=== PATIENT | female | born 1960 | race Caucasian/White ===

== ENCOUNTER → 2016-06-26 | Outpatient (CLI) | payer BC ==
--- NOTE | 2016-06-26 13:10 | KCIC ---
PROCEDURE Three-view right wrist HISTORY Arthralgia. Pain. COMPARISON June 04, 2014. FINDINGS Generalized primary osteoarthritis is again identified. Bone hypertrophy at the distal ulna and the triquetrum is again identified. Proximal osteophytes at the lunotriquetral joint are again identified. No evidence of acute fracture. Alignment is stable since prior study. IMPRESSION No acute fracture. Chronic changes and osteoarthritis appears similar as prior study. Electronically signed by: Lisandro Mcclure MD (Jun 26, 2016 13:09:32)
--- NOTE | 2016-06-26 13:13 | KCIC ---
PROCEDURE Single view AP pelvis HISTORY Multiple joint pain. Arthralgia. COMPARISON None FINDINGS No evidence of acute fracture or aggressive bone destruction. No evidence of dislocation. Joint spaces are maintained. Mild osteophytes at the hip joints. Surgical clips seen in the pelvis. Mild enthesophytes identified at the pelvis. Tiny pelvic calcification would most typically represent a phlebolith. IMPRESSION No acute abnormality. Electronically signed by: Lisandro Mcclure MD (Jun 26, 2016 13:11:43)
--- NOTE | 2016-06-26 13:19 | KCIC ---
PROCEDURE Lumbar spine radiographs. HISTORY Arthralgia, pain in multiple joints COMPARISON 06/04/2014 FINDINGS Five views of the lumbar spine are submitted. There is very mild smooth dextroscoliosis as seen previously. Lumbar vertebral body stature and AP alignment are maintained. There is again moderate to severe degenerative disc disease L5-S1 and minimally at L4-5, multilevel spondylosis. There is facet degenerative change greater inferiorly of the lumbar spine as seen previously. IMPRESSION 1. No acute osseous abnormality is identified. There is again degenerative disc disease greatest at L5-S1 and to a lesser degree at L4-5, multilevel spondylosis and facet degenerative change. Electronically signed by: Jaison Muhammad MD (Jun 26, 2016 13:18:15)
--- NOTE | 2016-06-26 13:26 | KCIC ---
Right elbow Indication: Reason For Study Reason: ARTHRALGIA, PAIN MULTIPLE JOINTS, NO INJURY / Spl. Instructions: PT UNABLE TO FULLY EXTEND ELBOW / History: FINDINGS No fracture or dislocation. No periosteal reaction or focal bone lesion. No evidence for joint effusion. Soft tissues are unremarkable. There is some degenerative change of the epicondylar surfaces with marginal osteophyte formation noted. IMPRESSION No fracture dislocation. There is degenerative osteophyte formation about the epicondyles. Electronically signed by: Slava Alonzo (Jun 26, 2016 13:24:50)
== END | disposition home or self-care (01) ==
LOC: KCIC 11:12
PROVIDERS: ATTEND Internal Medicine Rheumatology
DX: M77.11 Lateral epicondylitis, right elbow (principal); M25.721 Osteophyte, right elbow
CPT/HCPCS: 72110; 72170; 73080; 73110